=== PATIENT | female | born 1950 | race Caucasian/White ===

== ENCOUNTER 2018-05-12 14:13 | Inpatient (IN) ==
[2018-05-12] MEDS ORDERED: ASPIRIN ONE (14:24)
[2018-05-12] MEDS ORDERED: ASPIRIN PO ONE (14:28)
[2018-05-12] MEDS ORDERED: NITROGLYCERIN TOP ONE (14:48)
--- NOTE | 2018-05-12 14:49 | PROVIDER DOCUMENTATION ---
HPI-Chest Pain - General Chief Complaint: Chest Pain Stated Complaint: CHEST PAINS Time Seen by Provider: 05/12/18 14:29 Source: patient Allergies/Adverse Reactions: Patient Allergies Allergy/AdvReac Type Severity Reaction Status Date / Time No Known Allergies Allergy Verified 05/12/18 14:27 Home Medications: Home Medication List Medication Instructions Recorded Confirmed Last Taken Type Erythromycin Oph Ointment 1 inch OPH QHS #1 tube 12/07/15 Unknown Rx Moxifloxacin 0.5% Oph Soln 1 drop LEFT EYE Q6HR #1 bottle 12/07/15 Unknown Rx [Vigamox 0.5% Oph Soln] Prednisolone Acetate [Omnipred] 1 drop LEFT EYE Q6HR #1 each 12/07/15 Unknown Rx - History of Present Illness-CP Nature of Presenting Problem: Chest pain that radiates to left arm intermittently for a week. Complains of fatigue and dyspnea. History of CAD. Not followed by pcp. Location: reports: substernal Chest Pain Radiation: reports: arms Quality of Pain: reports: aching, dull Severity in ED: moderate Onset/Duration: last week Timing: still present Context/Activities at Onset: reports: none Modifying Factors: improves with: exercise. worse with: nothing Associated Symptoms: reports: fatigue, shortness of breath, weakness. denies: abdominal pain, back pain, diaphoresis, dizziness, fever/chills, syncope, vomiting Aspirin Treatment Today: no aspirin today Prior Chest Pain/Cardiac Workup: reports: cardiac cath (1994) Similar Symptoms Previously?: Yes Recently Seen Here or By Another Healthcare Provider: No Review of Systems - Adult - REVIEW OF SYSTEMS - ADULT Constitutional: reports: no symptoms reported. denies: chills, fever Eyes: reports: no symptoms reported Ears, Nose, Mouth & Throat: reports: no symptoms reported Cardiovascular: reports: see HPI, chest pain Respiratory: reports: dyspnea on exertion, shortness of breath. denies: cough Gastrointestinal: reports: no symptoms reported. denies: abdominal pain Genitourinary: reports: no symptoms reported Musculoskeletal: reports: no symptoms reported. denies: back pain Integumentary: reports: no symptoms reported. denies: rash Neurological: reports: no symptoms reported. denies: numbness, paresthesia Psychiatric: reports: no symptoms reported Endocrine: reports: no symptoms reported Hematologic/Lymphatic: reports: no symptoms reported Allergic/Immunologic: reports: no symptoms reported All Other Systems: Reviewed and Negative Past History - Adult - PAST MEDICAL HISTORY-ADULT Review of Records: reports: Old Records Reviewed, Nursing Assessment Review, Medications Reviewed, Social history reviewed & non-contributory. Major Childhood Illnesses: reports: denies history Cardiovascular: reports: denies history Respiratory: reports: denies history Gastrointestinal: reports: denies history Obstetrical/Gynecological: reports: denies history Genitourinary: reports: denies history Musculoskeletal: reports: denies history Neurological: reports: denies history Endocrine/Immune: reports: denies history Other Conditions: reports: denies history - PRIOR SURGERIES/PROCEDURES Surgical/Procedure History: reports: - IMMUNIZATION STATUS Childhood Immunizations: See Nurse Assessment Flu Vaccine: See Nurse Assessment - FAMILY HISTORY Family History: reviewed, not pertinent - SOCIAL HISTORY Smoking: denies Substance Use: none/never Alcohol Use Frequency: never Living Situation: family Physical Exam-General - PHYSICAL EXAM-ADULT Initial Vital Signs Reviewed: Yes - CONSTITUTIONAL General Appearance: appears well, alert, no apparent distress - EYES Eyes: PERRL/EOMI, pink conjunctivae - HEAD, EARS, NOSE, MOUTH & THROAT HENMT: moist mucous membranes - NECK Neck: supple - RESPIRATORY Respiratory: lungs clear, normal breath sounds - CARDIOVASCULAR Cardiovascular: normal peripheral pulses, regular rate, rhythm - GASTROINTESTINAL (ABDOMEN) Abdominal Exam: non tender, soft, other (minimal stool in vault) - MUSCULOSKELETAL Back Exam: normal inspection Extremity: normal gait, normal inspection, no pedal edema, no calf tenderness - SKIN Integumentary: normal color, normal turgor, warm/dry - NEUROLOGIC Neurologic: grossly normal, no motor/sensory deficits - PSYCHIATRIC Psych/Mental Status: normal thought content Progress - PLAN OF CARE/RESULTS Progress/Plan/Lab Results: Vital Signs - 8 hr 05/12/18 14:18 05/12/18 15:45 Temperature 97.4 F L Pulse Rate 71 66 Respiratory Rate 20 18 Blood Pressure 180/77 162/95 O2 Sat by Pulse Oximetry 97 99 Laboratory Results - last 24 hr 05/12/18 05/12/18 05/12/18 14:42 14:42 14:42 WBC 7.53 RBC 4.43 Hgb 7.4 L Hct 27.9 L MCV 63.0 L MCH 16.7 L MCHC 26.5 L RDW Std Deviation 21.7 H Plt Count 395 MPV Not Reportable Immature Gran % (Auto) 0.3 Neut % (Auto) 64.1 Lymph % (Auto) 25.2 [place] % (Auto) 7.0 Eos % (Auto) 2.7 Baso % (Auto) 0.7 Immature Gran # (Auto) 0.02 Neut # (Auto) 4.83 Lymph # (Auto) 1.90 [place] # (Auto) 0.53 Eos # (Auto) 0.20 Baso # (Auto) 0.05 Segmented Neutrophils Not Reportable PT INR PTT (Actin FS) Sodium 141 Potassium 4.4 Chloride 103 Carbon Dioxide 25 Anion Gap 13 BUN 8 Creatinine 0.6 Estimated GFR/1.73 m2 > 60 BUN/Creatinine Ratio 13 Glucose 103 Calculated Osmolality 280 Calcium 9.6 Total Bilirubin 0.30 AST 17 ALT 12 Alkaline Phosphatase 151 H Creatine Kinase 59 Troponin T [id number]-[id number]-Fhwnjfbjwia Pept 91 Total Protein 7.4 Albumin 4.2 Globulin 3.0 Albumin/Globulin Ratio 1.0 Stool Occult Blood 05/12/18 05/12/18 05/12/18 14:42 14:42 15:30 WBC RBC Hgb Hct MCV MCH MCHC RDW Std Deviation Plt Count MPV Immature Gran % (Auto) Neut % (Auto) Lymph % (Auto) [place] % (Auto) Eos % (Auto) Baso % (Auto) Immature Gran # (Auto) Neut # (Auto) Lymph # (Auto) [place] # (Auto) Eos # (Auto) Baso # (Auto) Segmented Neutrophils PT 13.0 INR 0.94 PTT (Actin FS) 27.5 Sodium Potassium Chloride Carbon Dioxide Anion Gap BUN Creatinine Estimated GFR/1.73 m2 BUN/Creatinine Ratio Glucose Calculated Osmolality Calcium Total Bilirubin AST ALT Alkaline Phosphatase Creatine Kinase Troponin T < 0.010 [id number]-Gfufvcqotjl Pept Total Protein Albumin Globulin Albumin/Globulin Ratio Stool Occult Blood NEGATIVE Orders Category Date Time Status Cardiac Monitoring DIRECTED Care 05/12/18 14:29 Active Cardiac Monitoring DIRECTED Care 05/12/18 14:31 Active Nursing- Obtain EKG once Care 05/12/18 14:28 Active Saline Loc NOW Care 05/12/18 14:29 Active Saline Loc NOW Care 05/12/18 14:31 Active CHEST-PORTABLE [RAD] Stat Exams 05/12/18 14:30 Completed CBC WITH ELECTRONIC DIFF [HEME] Stat Lab 05/12/18 14:42 Completed CK PROFILE [SP CHEM] Stat Lab 05/12/18 14:42 Completed COMPREHENSIVE METABOLIC PANEL [CHEM] Stat Lab 05/12/18 14:42 Completed OCCULT BLOOD SCREEN STOOL PL Stat Lab 05/12/18 15:30 Completed PRO B-NATRIURETIC PEPTIDE Stat Lab 05/12/18 14:42 Completed PROTIME WITH INR [COAG] Stat Lab 05/12/18 14:42 Completed PTT [COAG] Stat Lab 05/12/18 14:42 Completed TROPONIN T Stat Lab 05/12/18 14:42 Completed Aspirin Med 05/12/18 14:24 Discontinued 325 mg .ROUTE .STK-MED ONE Aspirin Med 05/12/18 14:28 Discontinued 325 mg PO NOW ONE Nitroglycerin Med 05/12/18 14:48 Discontinued 0.5 inch TOP NOW ONE CP/SOB/Palp >45 yrs of Age Stat Oth 05/12/18 14:30 Ordered Result Diagrams: 05/12/18 14:42 05/12/18 14:42 - XRAY 1 Impression: See EMR Report (EXAM: CHEST-PORTABLE HISTORY: chest pain TECHNIQUE: Single view COMPARISON: None. FINDINGS: There is cardiomegaly with mild vascular congestion. There is a hiatal hernia. No effusion. No focal consolidation or pneumothorax is appreciated. IMPRESSION: Cardiomegaly with mild vascular congestion. Hiatal hernia.) - CONSULTS/PCP/HOSPITALIST Notification #1 *Consult/PCP/Hospitalist*: Dr. Whiting Time Discussed: 16:15 Consult Disposition: Admit Departure - Departure Date of Disposition Decision: 05/12/18 Time of Disposition Decision: 16:15 DIAGNOSIS: ACS (acute coronary syndrome) Chest pain Qualifiers: Chest pain type: unspecified Qualified Code(s): R07.9 - Chest pain, unspecified Anemia Qualifiers: Anemia type: unspecified type Qualified Code(s): D64.9 - Anemia, unspecified Disposition: ADMITTED INPATIENT 09 Certified Medical Emergency: Emergent Condition: Good Referrals and Follow-Ups: None,PCP [Primary Care Provider] - - Critical Care Note This patient required my direct & personal management of CC.: No Attestation - Physician/ DRAGAN Attestation Patient care was provided by Advanced Practice Provider:: Yes Advanced Practice Provider:: Adrian Lazo Advanced Practice Provider documentation review:: The Mid-level provider documentation, treatment plan and medical decision making was reviewed by the physician who agrees with all treatment and medical decision making by the MLP. The physician spent face to face time with patient:: Yes Advanced Practice Provider documentation review:: Supervising physician onsite and consulted in the evaluation and care of this patient. The physician did have a face to face encounter with the patient.
[2018-05-12 15:00] LABS: BASO# 0.05 X1000 (0.0-0.2); BASO% 0.7 % (0.0-0.8); EOS% 2.7 % (0.0-10.0); HEMATOCRIT 27.9 % (37.0-47.0); HEMOGLOBIN 7.4 g/dL (12.0-16.0); IMM GRAN# 0.02 X1000 (0.0-0.04); IMM GRAN% 0.3 % (0.0-0.5); LYMPH% 25.2 % (20.5-51.1); MCH 16.7 PG (27-31); MCHC 26.5 g/dL (33-37); MONO# 0.53 X1000 (0.11-0.59); NEUT# 4.83 X1000 (1.4-6.5); NEUT% 64.1 % (42.2-75.2); PLT 395 X1000 (130-400); RBC 4.43 XMIL (4.2-5.4); RDW 21.7 % (11.5-14.5); WBC 7.53 X1000 (4.8-10.8)
[2018-05-12 15:07] LABS: AGAP 13; ALBUMIN 4.2 g/dL (3.5-5.0); ALKALINE PHOSPHATASE 151 U/L (32-104); BUN 8 mg/dL (8-22); CALCIUM 9.6 mg/dL (8.8-10.2); CHLORIDE 103 mmol/L (98-107); CK PROFILE 59 U/L (24-173); COSMO 280; CREATININE 0.6 mg/dL (0.5-0.9); ESTIMATED GFR > 60; GLUCOSE 103 mg/dL (70-104); GOT 17 U/L (10-30); GPT 12 U/L (10-36); POTASSIUM 4.4 mmol/L (3.5-5.1); SODIUM 141 mmol/L (136-145); TCO2 25 mmol/L (25-35); TOTAL PROTEIN 7.4 g/dL (6.3-8.3)
--- NOTE | 2018-05-12 15:07 | Diag Imaging Result Doc PS360 ---
EXAM: CHEST-PORTABLE HISTORY: chest pain TECHNIQUE: Single view COMPARISON: None. FINDINGS: There is cardiomegaly with mild vascular congestion. There is a hiatal hernia. No effusion. No focal consolidation or pneumothorax is appreciated. IMPRESSION: Cardiomegaly with mild vascular congestion. Hiatal hernia. Electronically signed by Raissa Mccarthy 05/12/2018 3:04 PM
[2018-05-12 15:08] LABS: INR 0.94; PTT 27.5 Seconds (22.3-41.8)
[2018-05-12 15:40] LABS: OCCULT BLOOD 1 NEGATIVE (NEGATIVE)
[2018-05-12 17:01] LABS: IRON SATURATION 3 %; TIBC 470 ug/dL; TOTAL IRON 15 ug/dL (49-151); UNBOUND IRON 455 ug/dL (112-346)
--- NOTE | 2018-05-12 17:38 | ED EKG INTERP ---
This chart was entered by Yeni Maria Scribe, acting as scribe for Adrian Lazo PA. EKG Interpretation - EKG Time of EKG reading by physician:: 14:47 EKG Read and Signed by:: Scooter Loera EKG Interpretation (*Must complete 3 of following elements*): Abnormal (Normal sinus rhythm, minimal voltage criteria for LVH, May be normal variant, Nonspecific T wave abnormality Abnormal ECG.) <Adrian Lazo - Last Filed: 05/12/18 15:27> - EKG Rate: 71 Rhythm: NSR [place]: normal VA Interval: normal ST Wave: non-specific ST changes <Scooter Loera - Last Filed: 05/12/18 15:48> Attestation - Physician/ DRAGAN Attestation Patient care was provided by Advanced Practice Provider:: Yes Advanced Practice Provider:: Adrian Lazo Advanced Practice Provider documentation review:: The Mid-level provider documentation, treatment plan and medical decision making was reviewed by the physician who agrees with all treatment and medical decision making by the MLP. The physician spent face to face time with patient:: Yes Advanced Practice Provider documentation review:: Supervising physician onsite and consulted in the evaluation and care of this patient. The physician did have a face to face encounter with the patient. <Scooter Loera - Last Filed: 05/12/18 15:48> This chart was documented by the indicated scribe, (Yeni Maria Scribe) and accurately reflects the services I performed and decisions made by , Adrian Lazo PA, as attested by the provider's signature.
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
[2018-05-12] MEDS ORDERED: ZOFRAN IV PRN (18:59)
[2018-05-12] MEDS ORDERED: TYLENOL PO PRN (18:59)
[2018-05-12] MEDS ORDERED: NITROGLYCERIN SL PRN (18:59)
[2018-05-12] MEDS ORDERED: NS 1,000 ML ONE (22:08)
[2018-05-12] MEDS: PROTONIX IV SCH (22:59)
[2018-05-12 23:15] LABS: FERRITIN 5 ng/mL (13-150)
--- NOTE | 2018-05-13 00:55 | PROGRESS NOTE ---
DATE: 05/12/2018 SUBJECTIVE: Patient complaining of chest pain, weakness, chest pain radiating down her left arm. Now that being said, she has been very weak over the last several weeks, a month I would say. She has difficulty ambulating without getting short of breath. She just does not have any energy. Now she has been anemic before. I think this was last year. She was told she was anemic, but she did not end up completing follow-up for that and they recommended transfusion at that time. She has been at [facility] with a bleeding ulcer. This is per family. She also has seen Dr. Mota in [place], who said she had a 50% blockage. That was within the last 10 years. Workup in the ER was really unremarkable except for anemia microcytic and iron deficiency. Her problem list and her physical exam is really unremarkable. PROBLEM LIST: 1. Chest pain rule out. I think this may be demand ischemia related to anemia. She is just so anemic it is causing angina. I am not sure she truly has underlying coronary artery disease although if she has a 50% blockage then she does so we will pursue echo, stress test if possible if she is not too anemic and then stress test, echo, and cardiac enzymes, monitor on telemetry. 2. Symptomatic anemia, iron deficiency. We will supplement iron. I am going to go ahead and give her a unit of blood. She is right on the cusp for transfusion in any case, and I do think it is inducing myocardial ischemia potentially or angina and we will continue to follow. 3. Hypertension. We will continue to monitor. Adjust medications accordingly. This is a [id number] encounter note with Leida Beckham. cc: Tong Whiting MD
[2018-05-13] MEDS: MORPHINE IV PRN ×2 (04:12→08:06)
--- NOTE | 2018-05-13 06:24 | EKG Report ---
Test Performed on : 05/13/2018 06:13:59 AM Test Reason : CP Blood Pressure : / mmHG Vent. Rate : 075 BPM Atrial Rate : 075 BPM P-R Int : 158 ms QRS Dur : 078 ms QT Int : 396 ms P-R-T Axes : 042 004 066 degrees QTc Int : 442 ms Normal sinus rhythm. Moderate voltage criteria for LVH, may be normal variant Nonspecific T wave abnormality Abnormal ECG When compared with ECG of 12-MAY-2018 14:22, (Unconfirmed) No significant change was found Confirmed by Topher Marvin MD ([id number]) on 05/16/2018 9:46:56 AM
[2018-05-13] MEDS: PROTONIX IV SCH ×2 (06:31→23:01)
[2018-05-13] MEDS ORDERED: PRILOSEC PO SCH (07:00)
[2018-05-13 07:26] LABS: BASO# 0.04 X1000 (0.0-0.2); BASO% 0.3 % (0.0-0.8); EOS# 0.17 X1000 (0.0-0.7); EOS% 1.2 % (0.0-10.0); HEMATOCRIT 28.2 % (37.0-47.0); HEMOGLOBIN 7.6 g/dL (12.0-16.0); IMM GRAN# 0.04 X1000 (0.0-0.04); IMM GRAN% 0.3 % (0.0-0.5); LYMPH# 1.62 X1000 (1.2-3.4); LYMPH% 11.1 % (20.5-51.1); MCH 17.3 PG (27-31); MCV 64.2 FL (81-99); MONO# 0.84 X1000 (0.11-0.59); MONO% 5.8 % (1.7-9.3); NEUT# 11.88 X1000 (1.4-6.5); NEUT% 81.3 % (42.2-75.2); PLT 356 X1000 (130-400); RBC 4.39 XMIL (4.2-5.4); RDW 22.7 % (11.5-14.5); WBC 14.59 X1000 (4.8-10.8)
[2018-05-13 07:35] LABS: AGAP 12; BUN 9 mg/dL (8-22); CALCIUM 8.9 mg/dL (8.8-10.2); CHLORIDE 103 mmol/L (98-107); COSMO 275; CREATININE 0.5 mg/dL (0.5-0.9); ESTIMATED GFR > 60; GLUCOSE 109 mg/dL (70-104); POTASSIUM 4.2 mmol/L (3.5-5.1); SODIUM 138 mmol/L (136-145); TCO2 23 mmol/L (25-35)
[2018-05-13 08:19] LABS: ANISOCYTOSIS 2+; LYMPHS 19 % (21-51); MICROCYTOSIS 2+; MONO 5 % (1-9); SEGS 76 % (42-75)
[2018-05-13] MEDS ORDERED: ASPIRIN PO SCH (09:00)
[2018-05-13] MEDS ORDERED: LEXISCAN ONE (14:01)
--- NOTE | 2018-05-13 15:32 | PROGRESS NOTE ---
DATE: 05/13/2018 SUBJECTIVE: The patient has no focal complaints. OBJECTIVE: Vital signs: Blood pressure is 148/56, heart rate of 88, respiratory rate of 20, temperature 97.2 degrees, 100% on room air. Cardiovascular: Regular rate and rhythm. Pulmonary: Bilateral breath sounds. Clear to auscultation. Gastrointestinal: Soft, nontender, nondistended. Bowel sounds are positive. DIAGNOSTIC DATA: White count is up to 14, hemoglobin 7, hematocrit 28, platelets 356,000. Basic was normal. PROBLEM LIST: 1. Chest pain. We will continue to follow. Stress and echo are pending. She has ruled out with serial enzymes. 2. Symptomatic anemia. Concerned while she has iron deficiency anemia, she has not really had much improvement after transfusion. She may need additional blood. I am going to give her iron today, and we will see how her numbers look tomorrow. 3. Hypertension is stable currently. DISPOSITION: We need to ensure we have ruled out GI bleed, and we will monitor for further workup pending that. I do think she needs an endoscopy if her cardiac workup is negative. cc: Tong Whiting MD
--- NOTE | 2018-05-13 15:48 | EKG Report ---
Test Performed on : 05/12/2018 2:22:20 PM Test Reason : ER Blood Pressure : / mmHG Vent. Rate : 071 BPM Atrial Rate : 071 BPM P-R Int : 152 ms QRS Dur : 086 ms QT Int : 396 ms P-R-T Axes : 054 009 057 degrees QTc Int : 430 ms Normal sinus rhythm. Minimal voltage criteria for LVH, may be normal variant Nonspecific T wave abnormality Abnormal ECG When compared with ECG of 23-MAY-2016 13:14, No significant change was found Unconfirmed Result
[2018-05-13] MEDS ORDERED: VENOFER 200 MG in NS 150 ML IV ONE (16:00)
--- NOTE | 2018-05-13 16:41 | Diag Imaging Result Document ---
PROCEDURE NAME: MYOCARDIAL PERF SCAN, STR/REST - 05/13/2018 LEXISCAN SESTAMIBI INTERPRETATION: SUMMARY: The patient was administered 14.8 mCi of technetium-99m sestamibi, after which resting cardiac images were obtained. The patient was subsequently administered Lexiscan 0.4 mg intravenously after which the heart rate went from 77 beats per minute to 98 beats per minute, while the blood pressure went from 153/73 to 119/63. With Lexiscan, the patient reported chest discomfort. Following the administration of Lexiscan, the patient was administered 43.0 mCi of technetium-99m sestamibi, after which gated stress cardiac images were obtained. Baseline ECG demonstrates sinus rhythm. Minimal voltage criteria for left ventricular hypertrophy and nonspecific ST and T-wave abnormality. Following the administration of Lexiscan, the patient demonstrated approximately 1.0 mm of slightly downsloping ST-segment depression in the inferior and lateral precordial leads. SPECT images were reconstructed in the short, horizontal long, vertical long axes. Review of these images demonstrated no scintigraphic evidence of inducible myocardial ischemia or prior infarct. Gated images demonstrate a calculated left ventricular ejection fraction of 77% with symmetrical wall motion/thickening. CONCLUSIONS: 1. Adequate response to Lexiscan. 2. Clinically the patient reported chest discomfort with Lexiscan. 3. Electrocardiographically suggestive of Lexiscan-induced myocardial ischemia, although specificity is somewhat reduced due to baseline ST and T-wave abnormality. 4. Lexiscan sestamibi images demonstrate no scintigraphic evidence of inducible myocardial ischemia. Normal left ventricular systolic function demonstrated. cc: MD Leida Parnell CRNP
[2018-05-13] MEDS: MIRALAX PO SCH (17:13)
[2018-05-13 18:10] LABS: AGAP 18; ALBUMIN 3.8 g/dL (3.5-5.0); ALKALINE PHOSPHATASE 138 U/L (32-104); BUN 8 mg/dL (8-22); CALCIUM 9.1 mg/dL (8.8-10.2); CHLORIDE 101 mmol/L (98-107); COSMO 278; CREATININE 0.7 mg/dL (0.5-0.9); ESTIMATED GFR > 60; GLUCOSE 167 mg/dL (70-104); GOT 21 U/L (10-30); GPT 12 U/L (10-36); POTASSIUM 4.2 mmol/L (3.5-5.1); SODIUM 138 mmol/L (136-145); TCO2 19 mmol/L (25-35); TOTAL PROTEIN 6.7 g/dL (6.3-8.3)
[2018-05-13] MEDS: SODIUM CHLORIDE 0.9% INJ SCH (23:01)
--- NOTE | 2018-05-13 23:51 | ECHO REPORT ---
ORDER DATE: 05/13/2018 MEASUREMENTS: Left ventricular end-diastolic diameter 5.0, septal thickness 0.9, aortic root. 3.6, left atrium 5.3. SUMMARY: 1. Technically difficult study due to limited acoustic window quality. Intravenous echo contrast agent Definity was utilized to enhance endocardial definition. 2. Aortic valve appears without evidence of structural abnormality and opens adequately on 2- dimensional images. Moderate mitral annular calcification is demonstrated. There is trace mitral regurgitation. The tricuspid valve is without evidence of structural abnormality while the pulmonic valve is not well demonstrated. There is trace tricuspid regurgitation. The aortic root is normal in size. 3. Normal left ventricular dimensions suggested. Estimated left ventricular ejection fraction appears to be at least 65%. No regional wall motion abnormalities are evident. Left atrium is moderately enlarged. Right atrium and right ventricle are grossly normal size with grossly preserved right ventricular systolic function. 4. No pericardial effusion. 5. Appearance of the inferior vena cava suggests normal central venous pressure. cc: MD Tong Parnell MD
[2018-05-14] MEDS: MORPHINE IV PRN ×3 (01:03→23:10)
[2018-05-14 07:01] LABS: BILIRUBIN URINE NEGATIVE (NEGATIVE); BLOOD URINE NEGATIVE (NEGATIVE); CLARITY CLEAR (CLEAR); COLOR YELLOW; GLUCOSE URINE NEGATIVE (NEGATIVE); KETONE URINE NEGATIVE (NEGATIVE); LEUKOCYTES URINE 1+ (NEGATIVE); NITRITE URINE NEGATIVE (NEGATIVE); PH URINE 6.5; PROTEIN URINE NEGATIVE (NEGATIVE); SP GRAVITY URINE 1.015; UROBILINOGEN URINE NORMAL
[2018-05-14 07:44] LABS: URINE BACTERIA 1+ /HFP; URINE EPITHELIAL CELLS <10 /HPF (<10)
[2018-05-14 07:45] LABS: URINE SMALL ROUND CELLS RENAL PRESENT; URINE SOURCE CLEAN CATCH
[2018-05-14 08:07] LABS: BASO# 0.04 X1000 (0.0-0.2); BASO% 0.5 % (0.0-0.8); EOS# 0.32 X1000 (0.0-0.7); EOS% 3.7 % (0.0-10.0); HEMATOCRIT 28.2 % (37.0-47.0); HEMOGLOBIN 7.4 g/dL (12.0-16.0); IMM GRAN# 0.04 X1000 (0.0-0.04); IMM GRAN% 0.5 % (0.0-0.5); LYMPH# 2.06 X1000 (1.2-3.4); LYMPH% 23.9 % (20.5-51.1); MCH 17.2 PG (27-31); MCHC 26.2 g/dL (33-37); MCV 65.4 FL (81-99); MONO# 0.68 X1000 (0.11-0.59); MONO% 7.9 % (1.7-9.3); MPV 11.1 FL (7.4-10.4); NEUT# 5.49 X1000 (1.4-6.5); NEUT% 63.5 % (42.2-75.2); PLT 345 X1000 (130-400); RBC 4.31 XMIL (4.2-5.4); RDW 22.7 % (11.5-14.5); WBC 8.63 X1000 (4.8-10.8)
--- NOTE | 2018-05-14 08:45 | GRADED EXERCISE REPORT ---
DATE: 05/13/2018 PROCEDURE: Patient underwent Lexiscan. This was ordered per Leida Beckham for chest pain. Reportedly, she has had a 50% blockage in the past. Anyway, her baseline EKG showed some ST depression, T-wave inversion V 5, V 6 and really kind of nonspecific changes. She developed shortness of breath during the episode, but no kelli chest pain, but she did develop kind of an unusual ST depression, but it looked like it was greater than a millimeter in 2 3 and AVF, which I would say is technically positive. There was also deepening of her ST changes in V 5, V 6. So I would say it is clinically equivocal, but electrically positive. Her peak heart rate was 98, peak blood pressure was 191/63. The patient is stable, recovered without difficulty. Myocardial perfusion reported separately. cc: Tong Whiting MD
[2018-05-14 09:11] LABS: ANISOCYTOSIS 2+; EOS 2 % (1-10); HYPOCHROM 1+; LYMPHS 23 % (21-51); MICROCYTOSIS 2+; MONO 2 % (1-9); POLYCHROM 1+; SEGS 73 % (42-75)
[2018-05-14] MEDS: MIRALAX PO SCH (10:30)
[2018-05-14] MEDS: PROTONIX IV SCH ×2 (10:36→22:56)
[2018-05-14] MEDS: SODIUM CHLORIDE 0.9% INJ SCH ×2 (10:36→22:56)
[2018-05-14] MEDS ORDERED: LASIX IV SCH (13:00)
--- NOTE | 2018-05-14 13:41 | Diag Imaging Result Doc PS360 ---
EXAM: CHEST-2 VIEWS INDICATION: hypoxia TECHNIQUE: 2 views COMPARISON: 05/12/2018 FINDINGS: Inspiration is suboptimal. The central vasculature is perhaps mildly prominent which may indicate mild pulmonary venous congestion. It appears slightly more prominent than the previous study. There is minimal subsegmental atelectasis at the right midlung zone. No other new consolidation is identified. Cardiac silhouette is stable. IMPRESSION: Slight increase in central vasculature suggesting worsening of mild pulmonary venous congestion. Electronically signed by Luciano Meng 05/14/2018 1:39 PM
[2018-05-14] MEDS ORDERED: VENOFER 200 MG in NS 150 ML IV ONE ×2 (14:00→18:00)
[2018-05-14] MEDS ORDERED: NS 250 ML ONE (14:04)
--- NOTE | 2018-05-14 15:36 | PROGRESS NOTE ---
DATE: 05/14/2018 SUBJECTIVE: The patient feels improved. OBJECTIVE: Blood pressure 132/45, heart rate 77, respiratory rate 18, temperature 97.8. Cardiovascular: Regular rate and rhythm. Pulmonary: Bilateral breath sounds with rales at the bases but more on the left than the right. GI was soft, nontender, nondistended. Bowel sounds were positive. LABORATORY DATA: White count is 8, hemoglobin and hematocrit 7 and 28, platelets 345,000. IMPRESSION: 1. Chest pain. Her stress and echo are negative. I discussed the results with the family. It is unlikely to be cardiac. 2. Symptomatic anemia with iron deficiency but without evidence of bleeding. We are going to continue iron supplementation, and we will give her 1 more unit of blood. I anticipate if she is stable tomorrow, we can get her home and then follow up with GI closely for a close esophagogastroduodenoscopy and possibly colonoscopy for her anemia workup. cc: Tong Whiting MD
[2018-05-14] MEDS ORDERED: TUSSIONEX LIQUID PO PRN (16:55)
[2018-05-14] MEDS ORDERED: TESSALON PO PRN (16:55)
[2018-05-15 07:50] LABS: BASO# 0.07 X1000 (0.0-0.2); BASO% 0.7 % (0.0-0.8); EOS# 0.44 X1000 (0.0-0.7); EOS% 4.1 % (0.0-10.0); HEMATOCRIT 32.1 % (37.0-47.0); HEMOGLOBIN 8.9 g/dL (12.0-16.0); IMM GRAN% 0.9 % (0.0-0.5); LYMPH# 2.04 X1000 (1.2-3.4); MCH 18.6 PG (27-31); MCHC 27.7 g/dL (33-37); MCV 67.2 FL (81-99); MONO# 0.82 X1000 (0.11-0.59); MONO% 7.6 % (1.7-9.3); MPV 10.9 FL (7.4-10.4); NEUT# 7.27 X1000 (1.4-6.5); NEUT% 67.7 % (42.2-75.2); PLT 364 X1000 (130-400); RBC 4.78 XMIL (4.2-5.4); RDW 24.8 % (11.5-14.5); WBC 10.74 X1000 (4.8-10.8)
[2018-05-15 08:03] LABS: AGAP 14; BUN 11 mg/dL (8-22); CHLORIDE 102 mmol/L (98-107); COSMO 281; CREATININE 0.6 mg/dL (0.5-0.9); ESTIMATED GFR > 60; GLUCOSE 111 mg/dL (70-104); POTASSIUM 3.7 mmol/L (3.5-5.1); SODIUM 141 mmol/L (136-145); TCO2 25 mmol/L (25-35)
[2018-05-15 09:12] LABS: EOS 2 % (1-10); HYPOCHROM 2+; LYMPHS 19 % (21-51); MICROCYTOSIS 2+; MONO 10 % (1-9); SEGS 69 % (42-75)
[2018-05-15] MEDS: PROTONIX IV SCH (10:05)
[2018-05-15] MEDS: SODIUM CHLORIDE 0.9% INJ SCH (10:05)
[2018-05-15] MEDS: MIRALAX PO SCH (10:05)
[2018-05-15 16:33] VITALS: BP 137/66
--- NOTE | 2018-05-16 05:10 | DISCHARGE SUMMARY ---
ADMISSION DATE: 05/14/2018 DISCHARGE DATE: 05/15/2018 DISCHARGE DIAGNOSES: 1. Atypical chest pain, likely related to demand ischemia from symptomatic anemia. 2. Iron deficiency anemia without evidence of GI bleed although she could have some occult bleeding that may have not been picked up. 3. History of peptic ulcer disease. 4. History of CAD. HISTORY: Briefly, this 68-year-old female presenting with chest pain, but she was fairly anemic on admission with an hemoglobin and hematocrit of 7 and 27 with microcytic indices. The patient was ruled out. She underwent an echo which showed normal EF. No significant valvular abnormalities. She also underwent a stress test which was negative for ischemic changes. EF was intact. Despite transfusion because she ended up getting 2 units of blood, she only went from 7.4 to 7.6, 27.9 to 28, so we gave her an additional unit of blood. Her iron studies showed iron level of 15, TIBC was on the high side, but still normal. Her iron saturation was 3%. Her ferritin was 5, so I think she clearly had iron deficiency anemia. She was Hemoccult negative though, but her daughter reports she has had peptic ulcer disease in the past. She may use intermittently NSAIDs. In any case, we watched her another day. On the 2nd, she was breathing comfortably 98% on room air. Hemoglobin and hematocrit had come up to 8.9 and 32, and she was felt stable for discharge. We will discharge her on Icar C daily and Prilosec 40 daily. Recommend close followup with Dr. Morse in a week or so to evaluate for a colonoscopy and EGD. Avoid NSAIDs, Tylenol products are safe. She will need to follow up with her PCP, none is listed. We may need to have her come back for CBC in about a week just to make sure her iron tests are normal. TIME SPENT: This is a 32 minute discharge. cc: MD Shaina Titus MD MTDD
== END 2018-05-15 17:50 | disposition home or self-care (01) | DRG 812 ==
LOC: P.ED 14:13 → P.MEDSURG 14:13 → SUATTDRO 18:53 → P.MEDSURG 21:15
PROVIDERS: ADMIT Internal Medicine; ATTEND Internal Medicine
CPT/HCPCS: 36430; 71010; 71020; 71045; 71046; 78452; 80048; 80053; 80061; 81001; 82270; 82550; 82607; 82728; 82746; 83540; 83550; 83721; 83880; 84484; 85025; 85610; 85730; 86850; 86900; 86901; 86920; 87088; 93005; 93010; 93017; 93306; 94761; 99285; A9270; A9500; C8929; C9113; J1756; J1940; J2270; J2405; J2785; J7030; J7050; P9016; Q9957; S0164